=== PATIENT | female | born 1980 | race Caucasian/White ===

== ENCOUNTER 2023-05-08 02:36 | Inpatient (IN) | payer BC ==
[2023-05-08] MEDS ORDERED: Celecoxib 200 MG Cap PO ONE (06:30)
[2023-05-08] MEDS ORDERED: Scopolamine 1.5 MG Transdermal Patch TOP ONE (06:30)
[2023-05-08] MEDS ORDERED: cefOXitin 2 GM Vial ONE (06:49)
[2023-05-08] MEDS ORDERED: Dextrose 5%-Lactated Ringers 1,000 ML IV SCH (07:00)
[2023-05-08] MEDS ORDERED: fentaNYL 250 MCG/5 ML SDV ONE ×2 (07:16→08:06)
[2023-05-08] MEDS ORDERED: Dexamethasone 4 MG/ML SDV ONE (07:17)
[2023-05-08] MEDS ORDERED: Neostigmine Methylsulfate 1 MG/ML 5 ML Syringe ONE (07:17)
[2023-05-08] MEDS ORDERED: Glycopyrrolate 0.2 MG/ML 5 ML MDV ONE (07:17)
[2023-05-08] MEDS ORDERED: Succinylcholine 200 MG/10 ML MDV ONE (07:17)
[2023-05-08] MEDS ORDERED: Propofol 200 MG/20 ML SDV ONE (07:17)
[2023-05-08] MEDS ORDERED: Ondansetron 4 MG/2 ML SDV ONE (07:17)
[2023-05-08] MEDS ORDERED: Rocuronium 50 MG/5 ML Vial ONE (07:17)
[2023-05-08] MEDS ORDERED: Lactated Ringers 1,000 ML ONE (07:18)
[2023-05-08] MEDS ORDERED: cefOXitin 2 GM in Sodium Chloride 0.9% 50 ML IV ONE (07:30)
[2023-05-08] MEDS ORDERED: Ketamine 17 MG in Sodium Chloride 0.9% 19.83 ML IV SCH (07:30)
[2023-05-08] MEDS ORDERED: Ketamine 500 MG/5 ML MDV IV SCH (07:30)
[2023-05-08] MEDS ORDERED: Labetalol 20 MG/4 ML Syringe ONE (09:18)
[2023-05-08] MEDS ORDERED: fentaNYL 50 MCG/ML SDV IVPUSH ONE (10:03)
[2023-05-08] MEDS ORDERED: hydrOXYzine HCL 100 MG/2 ML SDV IM ONE (10:03)
[2023-05-08] MEDS ORDERED: Ondansetron 4 MG/2 ML SDV IVPUSH ONE (10:03)
[2023-05-08] MEDS ORDERED: Cyclobenzaprine 10 MG Tab PO PRN (11:29)
[2023-05-08] MEDS: HYDROmorphone 0.5 MG/0.5 ML Syringe IVPUSH PRN ×2 (11:39→16:23)
[2023-05-08] MEDS ORDERED: traMADol 50 MG Tab PO PRN (12:00)
[2023-05-08] MEDS ORDERED: Metoclopramide 10 MG/2 ML SDV IVPUSH PRN (12:00)
[2023-05-08] MEDS ORDERED: Ondansetron 4 MG/2 ML SDV IVPUSH PRN (12:00)
[2023-05-08] MEDS ORDERED: diphenhydrAMINE 50 MG/ML SDV IVPUSH PRN (12:00)
[2023-05-08] MEDS ORDERED: Acetaminophen 500 MG Tab PO PRN (12:00)
[2023-05-08] MEDS ORDERED: Pantoprazole 40 MG Vial IVPUSH SCH (12:00)
[2023-05-08] MEDS ORDERED: Labetalol 20 MG/4 ML Syringe IVPUSH PRN (12:00)
[2023-05-08] MEDS ORDERED: hydrOXYzine HCL 100 MG/2 ML SDV IM PRN (12:00)
[2023-05-08] MEDS ORDERED: HYDROmorphone 1 MG/ML Syringe IV PRN (12:00)
[2023-05-08] MEDS: SCOPOLAMINE PATCH CHECK TOP SCH (13:50)
[2023-05-08] MEDS: cefOXitin 2 GM in Sodium Chloride 0.9% 50 ML IV SCH ×2 (13:50→19:37)
[2023-05-08] MEDS: MVI, Adult with Vitamin K 10 ML, Thiamine 200 MG, Zinc/Copper/Manganese/Selenium 1 ML i... IV SCH ×4 (16:20)
[2023-05-08] MEDS: Acetaminophen 500 MG Tab PO SCH ×2 (16:51→21:53)
[2023-05-08] MEDS: Heparin Sodium 5,000 Units/ML Vial SUBCUT SCH (17:19)
[2023-05-08] MEDS: oxyCODONE 5 MG Tab PO PRN (19:41)
[2023-05-09] MEDS: Dextrose 5%-Lactated Ringers 1,000 ML IV SCH ×2 (03:00→04:17)
[2023-05-09] MEDS: cefOXitin 2 GM in Sodium Chloride 0.9% 50 ML IV SCH ×4 (03:00→21:00)
[2023-05-09] MEDS ORDERED: Iopamidol 612 MG/ML 30 ML SDV PO ONE (03:48)
[2023-05-09] MEDS: oxyCODONE 5 MG Tab PO PRN (04:16)
[2023-05-09] MEDS: Heparin Sodium 5,000 Units/ML Vial SUBCUT SCH ×2 (05:00→18:12)
[2023-05-09] MEDS: Acetaminophen 500 MG Tab PO SCH ×3 (05:00→21:02)
[2023-05-09] MEDS ORDERED: Ondansetron 4 MG Tab.DIS PO PRN (06:55)
[2023-05-09] MEDS ORDERED: hydrOXYzine HCl 25 MG Tab PO PRN (06:56)
[2023-05-09] MEDS ORDERED: Dextrose 5%-Lactated Ringers 1,000 ML IV SCH (07:00)
[2023-05-09] MEDS: Celecoxib 200 MG Cap PO SCH ×2 (08:38→21:02)
[2023-05-09] MEDS: SCOPOLAMINE PATCH CHECK TOP SCH (08:39)
[2023-05-09] MEDS: Pantoprazole 40 MG Delayed-Release Granules 1 Packet PO SCH (08:39)
[2023-05-09] MEDS: MVI, Adult with Vitamin K 10 ML, Thiamine 200 MG, Zinc/Copper/Manganese/Selenium 1 ML i... IV SCH ×4 (18:12)
[2023-05-10] MEDS: cefOXitin 2 GM in Sodium Chloride 0.9% 50 ML IV SCH ×2 (01:33→08:44)
[2023-05-10] MEDS: Heparin Sodium 5,000 Units/ML Vial SUBCUT SCH ×2 (06:08→17:44)
[2023-05-10] MEDS: Acetaminophen 500 MG Tab PO SCH ×3 (06:08→21:01)
[2023-05-10] MEDS ORDERED: Sodium Chloride 0.9% 10 ML Syringe IV PRN (08:15)
[2023-05-10] MEDS ORDERED: Magnesium Hydroxide 400 MG/5 ML Susp 30 ML Cup PO PRN (08:15)
[2023-05-10] MEDS: Celecoxib 200 MG Cap PO SCH ×2 (08:34→20:56)
[2023-05-10] MEDS: Pantoprazole 40 MG Delayed-Release Granules 1 Packet PO SCH (08:34)
[2023-05-10] MEDS: SCOPOLAMINE PATCH CHECK TOP SCH (08:35)
[2023-05-10] MEDS ORDERED: Cyanocobalamin (Vitamin B12) 1,000 MCG/ML SDV IM ONE (09:00)
[2023-05-10] MEDS ORDERED: Magnesium Hydroxide 400 MG/5 ML Susp 30 ML Cup PO ONE (09:00)
[2023-05-11] MEDS: Acetaminophen 500 MG Tab PO SCH (05:33)
[2023-05-11] MEDS: Heparin Sodium 5,000 Units/ML Vial SUBCUT SCH (05:34)
[2023-05-11] MEDS: Pantoprazole 40 MG Delayed-Release Granules 1 Packet PO SCH (07:28)
[2023-05-11] MEDS: Celecoxib 200 MG Cap PO SCH (08:24)
[2023-05-11] MEDS ORDERED: Magnesium Hydroxide 400 MG/5 ML Susp 30 ML Cup PO ONE (09:00)
== END 2023-05-11 10:55 | disposition home or self-care (01) | DRG 403 ==
LOC: JP.SDSSCHI 05:56 → JP.2SS 11:28
PROVIDERS: ADMIT Surgery; ATTEND Surgery
PROC: 0D164ZA Bypass Stomach to Jejunum, Percutaneous Endoscopic Approach (ICD-10-PCS; principal; 2023-05-08)
PROC: 0FB24ZX Excision of Left Lobe Liver, Percutaneous Endoscopic Approach, Diagnostic (ICD-10-PCS; 2023-05-08)
PROC: 0BQT4ZZ Repair Diaphragm, Percutaneous Endoscopic Approach (ICD-10-PCS; 2023-05-08)
PROC: 0DB84ZZ Excision of Small Intestine, Percutaneous Endoscopic Approach (ICD-10-PCS; 2023-05-08)
DX: E66.01 Morbid (severe) obesity due to excess calories (principal); Z68.42 Body mass index [BMI] 45.0-49.9, adult; R16.0 Hepatomegaly, not elsewhere classified; G47.33 Obstructive sleep apnea (adult) (pediatric); K44.9 Diaphragmatic hernia without obstruction or gangrene; K21.9 Gastro-esophageal reflux disease without esophagitis; K59.09 Other constipation; Z79.899 Other long term (current) drug therapy; Z87.891 Personal history of nicotine dependence; Z98.890 Other specified postprocedural states
CPT/HCPCS: 36415; 74240; 74240-26; 81025; 82947; 86850; 86900; 86901; A9270-GY; C9113; J0171; J0330; J0694; J1100; J1170; J1644; J2405; J2704; J2710; J2765; J2795; J3010; J3410; J3411; J3420; J3490; J7120; J7121; Q9967

== ENCOUNTER 2023-07-24 09:25 | Day surgery (SDC) | payer BC ==
[2023-07-24] MEDS: Lactated Ringers 1,000 ML IV SCH ×2 (10:00→11:08)
[2023-07-24] MEDS ORDERED: Midazolam 1 MG/ML 2 ML SDV ONE (10:02)
[2023-07-24] MEDS ORDERED: fentaNYL 50 MCG/ML SDV ONE (10:02)
[2023-07-24] MEDS ORDERED: Propofol 200 MG/20 ML SDV ONE (10:02)
[2023-07-24] MEDS ORDERED: Cyanocobalamin (Vitamin B12) 1,000 MCG/ML SDV IM ONE (10:15)
[2023-07-24] MEDS ORDERED: Glycopyrrolate 0.2 MG/ML 2 ML SDV IVPUSH ONE (10:30)
[2023-07-24] MEDS ORDERED: MVI, Adult with Vitamin K 10 ML, Thiamine 200 MG, Chromium/Copper/Mang/Selen/Zn 1 ML in... IV ONE ×4 (11:00)
== END 2023-07-24 13:02 | disposition home or self-care (01) ==
LOC: JP.SDS 09:25
PROVIDERS: ATTEND Student in an Organized Health Care Education/Training Program
DX: K94.33 Esophagostomy malfunction (principal); Z87.891 Personal history of nicotine dependence; Z88.8 Allergy status to other drugs, medicaments and biological substances
CPT/HCPCS: 43220; 76000; C1726; J2250; J2704; J3010; J3420; J7120

== ENCOUNTER 2023-08-06 09:28 | Day surgery (SDC) | payer BC ==
[2023-08-06] MEDS ORDERED: fentaNYL 100 MCG/2 ML SDV ONE (09:41)
[2023-08-06] MEDS ORDERED: Propofol 200 MG/20 ML SDV ONE (09:41)
[2023-08-06] MEDS ORDERED: Midazolam 1 MG/ML 2 ML SDV ONE (09:41)
[2023-08-06] MEDS ORDERED: Lactated Ringers 1,000 ML IV SCH ×2 (10:00→10:30)
== END 2023-08-06 13:05 | disposition home or self-care (01) ==
LOC: JP.SDS 09:28
PROVIDERS: ATTEND Student in an Organized Health Care Education/Training Program
DX: K22.2 Esophageal obstruction (principal); K21.9 Gastro-esophageal reflux disease without esophagitis
CPT/HCPCS: 43220; C1726; J2250; J2704; J3010; J7120

== ENCOUNTER 2023-08-22 06:59 | Day surgery (SDC) | payer BC ==
[2023-08-22] MEDS ORDERED: Lactated Ringers 1,000 ML IV SCH (07:42)
[2023-08-22] MEDS ORDERED: MVI, Adult with Vitamin K 10 ML, Thiamine 200 MG, Zinc/Copper/Manganese/Selenium 1 ML i... IV ONE ×4 (07:45)
[2023-08-22] MEDS ORDERED: Propofol 200 MG/20 ML SDV ONE ×2 (07:50→08:29)
[2023-08-22] MEDS ORDERED: Midazolam 1 MG/ML 2 ML SDV ONE (07:50)
[2023-08-22] MEDS ORDERED: fentaNYL 50 MCG/ML SDV ONE (07:50)
[2023-08-22] MEDS ORDERED: Thiamine 200 MG/2 ML MDV IM ONE (09:30)
[2023-08-22] MEDS ORDERED: Cyanocobalamin (Vitamin B12) 1,000 MCG/ML SDV IM ONE (09:30)
== END 2023-08-22 10:05 | disposition home or self-care (01) ==
LOC: JP.SDS 06:59
PROVIDERS: ATTEND Student in an Organized Health Care Education/Training Program
DX: K22.2 Esophageal obstruction (principal)
CPT/HCPCS: 43202; 43220; J2250; J2704; J3010; J3411; J3420; J7120

== ENCOUNTER 2023-09-05 08:07 | Day surgery (SDC) | payer BC ==
[2023-09-05] MEDS ORDERED: Lactated Ringers 1,000 ML IV SCH (09:00)
[2023-09-05] MEDS ORDERED: fentaNYL 50 MCG/ML SDV ONE (09:28)
[2023-09-05] MEDS ORDERED: Midazolam 1 MG/ML 2 ML SDV ONE (09:28)
[2023-09-05] MEDS ORDERED: Propofol 200 MG/20 ML SDV ONE (09:28)
[2023-09-05] MEDS ORDERED: Ondansetron 4 MG/2 ML SDV ONE (10:23)
[2023-09-05] MEDS ORDERED: droPERidol 5 MG/2 ML SDV ONE (10:24)
== END 2023-09-05 12:16 | disposition home or self-care (01) ==
LOC: JP.SDS 08:07
PROVIDERS: ATTEND Student in an Organized Health Care Education/Training Program
DX: K22.2 Esophageal obstruction (principal); E66.9 Obesity, unspecified; Z68.38 Body mass index [BMI] 38.0-38.9, adult
CPT/HCPCS: 43220; 81025; J1790; J2250; J2405; J2704; J3010; J7120

== ENCOUNTER 2023-09-19 06:08 | Day surgery (SDC) | payer BC ==
[2023-09-19] MEDS: Lactated Ringers 1,000 ML IV SCH (07:01)
[2023-09-19] MEDS ORDERED: Propofol 200 MG/20 ML SDV ONE (07:13)
[2023-09-19] MEDS ORDERED: fentaNYL 100 MCG/2 ML SDV ONE (07:13)
[2023-09-19] MEDS ORDERED: Midazolam 1 MG/ML 2 ML SDV ONE (07:14)
[2023-09-19] MEDS ORDERED: Lactated Ringers 1,000 ML IV SCH (08:00)
[2023-09-19] MEDS: Ondansetron 4 MG/2 ML SDV IVPUSH ONE (09:15)
== END 2023-09-19 10:30 | disposition home or self-care (01) ==
LOC: JP.SDS 06:08
PROVIDERS: ATTEND Student in an Organized Health Care Education/Training Program
DX: K22.2 Esophageal obstruction (principal); K21.9 Gastro-esophageal reflux disease without esophagitis; E66.9 Obesity, unspecified
CPT/HCPCS: J2250; J2405; J2704; J3010; J7120

== ENCOUNTER → 2023-10-03 | Day surgery (SDC) | payer BC ==
[~2023-10-03] MED LIST: MVI, Adult with Vitamin K 10 ML, Thiamine 200 MG, Zinc/Copper/Manganese/Selenium 1 ML i... IV ONE; Midazolam 1 MG/ML 2 ML SDV ONE; Propofol 200 MG/20 ML SDV ONE; fentaNYL 50 MCG/ML SDV ONE
[2023-10-03] MEDS: Lactated Ringers 1,000 ML IV ONE (09:27)
[2023-10-03] MEDS: Cyanocobalamin (Vitamin B12) 1,000 MCG/ML SDV IM ONE (11:49)
== END ==
LOC: JP.SDS 08:56
PROVIDERS: ATTEND Student in an Organized Health Care Education/Training Program
DX: K22.2 Esophageal obstruction (principal); K91.2 Postsurgical malabsorption, not elsewhere classified; E53.8 Deficiency of other specified B group vitamins; E55.9 Vitamin D deficiency, unspecified; E60 Dietary zinc deficiency; E50.9 Vitamin A deficiency, unspecified; Z98.84 Bariatric surgery status; Z79.899 Other long term (current) drug therapy
CPT/HCPCS: 43220; 81025; J2250; J2704; J3010; J7120